=== PATIENT | male | born 1990 | race Caucasian/White ===

== ENCOUNTER 2018-06-30 17:46 | Emergency (ER) | payer MEDICAID, SELFPAY ==
[2018-06-03 10:16] VITALS: BMI 24.3
[2018-06-30 17:47] VITALS: BP 129/86; PULSE 93; RESP 15; TEMP 36.7; O2SAT 97; BMI 23.7
--- NOTE | 2018-06-30 18:23 | ED.VISSUMM ---
- ER Visit Summary Date of Service: 06/30/18 Chief Complaint: [] Irritation to the penile shaft after intercourse yesterday History of Present Illness: The patient is a 28 M [] no past history no penile discharge or drainage dysuria no trauma other than reporting he had normal intercourse with his yesterday suffered no direct trauma other than the normal events related to intercourse, indicates he feels that his irritation to the right lateral side of his penile shaft he has no history of STD or other complaints Physical Examination: [] The patient's exam penile shaft exam is unremarkable he has no lesions no swelling no warmth no drainage, the area he points to appears to show normal skin folds no signs of infection or trauma or lesion testicles inguinal area abdomen soft and the rest of his medical exam is also unremarkable Test Results: [] Emergency Department Course and Treatment: [] Explained to the patient likely has local irritation he should follow-up with his doctor he is given a referral to Dr. Porter urology antibiotic ointment to the area and return for change in symptoms Treatment Plan: [] Disposition: [] Home stable Impression: [] Irritation to the penile shaft This note was generated with [employer] dictation software. It may contain incorrect words, spelling, and punctuation that were not noted in review of the chart prior to signing ED Disposition - Plan for ED Patient: Referrals: NOT,DEFINED [Primary Care Provider] -
--- NOTE | 2018-06-30 18:24 | ED.DEP ---
ED Disposition - Plan for ED Patient: Instructions: ED Dermatitis Nonspecific Ch Referrals: NOT,DEFINED [Primary Care Provider] - Rod Aviles MD [STAFF PHYSICIAN] -
== END 2018-06-30 18:42 | disposition home or self-care (01) ==
LOC: ED 18:35
PROVIDERS: Emergency Provider Emergency Medicine
DX: N48.89 Other specified disorders of penis (principal)
CPT/HCPCS: 99282

== ENCOUNTER 2018-09-22 15:24 | Emergency (ER) | payer MEDICAID, SELFPAY ==
[2018-09-22 15:26] VITALS: BP 133/101; PULSE 88; RESP 17; TEMP 36.7; O2SAT 98; BMI 24.3
--- NOTE | 2018-09-22 15:28 | RAD_ITS ---
STUDY: X-RAY - RIGHT HAND REASON FOR EXAM: Male, 28 years old. Third through fifth metacarpal pain following injury. TECHNIQUE: 3 view(s) of the hand. COMPARISON: None. FINDINGS: Normal radiocarpal articulation. Normal distal radioulnar joint. Normal visualized carpal bones. Normal carpal articulations Normal carpometacarpal articulation of the thumb. Normal second through fifth carpometacarpal joints. Nondisplaced boxer type fracture along the distal aspect of the fifth metacarpal with mild dorsal angulation. Normal metacarpophalangeal joint of the thumb. Normal interphalangeal joint of the thumb. Normal proximal and distal phalanges of the thumb. Normal metacarpophalangeal joints of the second through fifth fingers. Normal proximal and distal interphalangeal joints of the second through fifth fingers. Normal phalanges of the second through fifth fingers. Soft tissue swelling. RAD/Hand Min 3 Views IMPRESSION: Boxer type fracture involving the distal portion of the fifth metacarpal with mild dorsal angulation and soft tissue swelling. Electronically Signed: Chan Chavez, at 15:50 EDT , Service support ,
--- NOTE | 2018-09-22 16:07 | ED.VISSUMM ---
- ER Visit Summary Date of Service: 09/22/18 Chief Complaint: Hand injury History of Present Illness: The patient is a 28 M who struck a wall today. He notes injury to the right hand. He is concerned is broken. He is right-hand dominant. He is seen Dr. Myles for orthopedics before. Physical Examination: Afebrile vital signs stable Gen: Well-nourished well-developed Head: Normocephalic atraumatic Eyes: Perrl EOMI ENT: TMs clear no rhinorrhea moist mucous membranes Neck: Supple no lymphadenopathy no JVD nontender CVS: Regular rate rhythm no murmurs normal S1-S2 Respiratory: No distress clear to auscultation bilaterally chest nontender Abdomen: Soft nontender nondistended normal bowel sounds no masses Back: Nontender Extremity: There is tenderness and swelling at the MCP joints of the right hand. Neurovascular intact Skin: Normal color no rash Neuro: alert orientated ?3 CN II-XII intact normal strength sensation Psych: Normal affect normal mood Test Results: X-rays revealed a boxer's fracture with displacement Emergency Department Course and Treatment: Patient was placed in a ulnar gutter splint. Neurovascular intact pre-and post application. He will follow-up with orthopedics Impression: 1. Right fifth metacarpal fracture 2. Splint by physician This note was generated with [employer] dictation software. It may contain incorrect words, spelling, and punctuation that were not noted in review of the chart prior to signing ED Disposition - Plan for ED Patient: Disposition: Home or Assisted Living Instructions: ED Fx Boxer Prescriptions: Hydrocodone Bitart/Apap 5-325 [[place] 5MG-325MG] 1 tab PO Q6H PRN PRN 3 Days #12 tab PRN Reason: Pain Referrals: Claudio Myles MD [STAFF PHYSICIAN] - (call to arrange follow up)
--- NOTE | 2018-09-22 16:10 | ED.DCSUM_ITS ---
- ER Visit Summary Date of Service: 09/22/18 Chief Complaint: Hand injury History of Present Illness: The patient is a 28 M who struck a wall today. He notes injury to the right hand. He is concerned is broken. He is right-hand dominant. He is seen Dr. Myles for orthopedics before. Physical Examination: Afebrile vital signs stable Gen: Well-nourished well-developed Head: Normocephalic atraumatic Eyes: Perrl EOMI ENT: TMs clear no rhinorrhea moist mucous membranes Neck: Supple no lymphadenopathy no JVD nontender CVS: Regular rate rhythm no murmurs normal S1-S2 Respiratory: No distress clear to auscultation bilaterally chest nontender Abdomen: Soft nontender nondistended normal bowel sounds no masses Back: Nontender Extremity: There is tenderness and swelling at the MCP joints of the right hand. Neurovascular intact Skin: Normal color no rash Neuro: alert orientated ?3 CN II-XII intact normal strength sensation Psych: Normal affect normal mood Test Results: X-rays revealed a boxer's fracture with displacement Emergency Department Course and Treatment: Patient was placed in a ulnar gutter splint. Neurovascular intact pre-and post application. He will follow-up with orthopedics Impression: 1. Right fifth metacarpal fracture 2. Splint by physician This note was generated with [employer] dictation software. It may contain incorrect words, spelling, and punctuation that were not noted in review of the chart prior to signing ED Disposition - Plan for ED Patient: Disposition: Home or Assisted Living Instructions: ED Fx Boxer Prescriptions: Hydrocodone Bitart/Apap 5-325 [[facility] 5MG-325MG] 1 tab PO Q6H PRN PRN 3 Days #12 tab PRN Reason: Pain Referrals: Claudio Myles MD [STAFF PHYSICIAN] - (call to arrange follow up)
--- NOTE | 2018-09-22 16:22 | ED.RN ---
DISCHARGE INSTRUCTIONS TO AND REVIEWED AND REVIEWED WITH PATIENT, PATIENT DENIES QUESTIONS OR CONCERNS AND VOICES UNDERSTANDING OF DISCHARGE INSTRUCTIONS. PT AMBULATES OUT OF ROOM WITHOUT DIFFICULTY.
== END 2018-09-22 16:24 | disposition home or self-care (01) ==
LOC: ED 16:18
PROVIDERS: Emergency Provider Emergency Medicine; Family Provider Family Medicine; PCP Family Medicine
DX: S62.339A Displaced fracture of neck of unspecified metacarpal bone, initial encounter for closed fracture (principal); Z72.0 Tobacco use; X58.XXXA Exposure to other specified factors, initial encounter; Y93.9 Activity, unspecified; Y92.89 Other specified places as the place of occurrence of the external cause; Y99.8 Other external cause status
CPT/HCPCS: 29125; 73130; 99282

== ENCOUNTER 2023-02-28 14:06 | Emergency (ER) | payer OTHER, SELFPAY ==
[2023-02-28 14:07] VITALS: BP 123/94; PULSE 81; RESP 16; TEMP 36.4; O2SAT 100; BMI 23.0
--- NOTE | 2023-02-28 14:37 | CT_ITS ---
STUDY: CT ABDOMEN AND PELVIS WITH CONTRAST REASON FOR EXAM: Male, 33 years old. Abd pain -- RLQ RUQ. Diarrhea. RADIATION DOSAGE (If Supplied By Facility): CTDIvol = ( 9.46 ) mGy, DLP = ( 463.98 ) mGycm TECHNIQUE: Transaxial images were obtained from the dome of the diaphragm to the symphysis pubis without oral contrast. IV 100mL Isovue-300 was administered. Sagittal and coronal images were reconstructed. Individualized dose optimization techniques were used for this CT. COMPARISON: None. FINDINGS: The visualized lung bases are unremarkable. The visualized portions of the heart are within normal limits. 1 cm cyst in the inferior medial aspect of the right lobe of the liver. Normal gallbladder and extrahepatic biliary system. Borderline splenomegaly. Normal pancreas. Normal bilateral adrenal glands. Normal right kidney. Normal left kidney. Normal visualized stomach. Normal small intestine. Colitis. The appendix is visualized and appears normal. Normal abdominal aorta. Normal inferior vena cava. Normal retroperitoneum. Normal urinary bladder. Normal abdominal wall. Normal osseous structures. CT/Abdomen/Pelvis W IV Cont ONLY IMPRESSION: Ramos colitis. Electronically Signed: Chan Chavez MD at 15:20 EDT ,
--- NOTE | 2023-02-28 14:40 | EDS_ITS ---
HPI HPI - GI History of Present Illness Chief Complaint: Abd Pain Informant: patient Narrative Narrative: Presents by private vehicle abdominal pain starting this morning while at work. Reports started on the mid abdominal radiating to the right side. No nausea or vomiting. States had loose stools. No urinary symptoms. No fevers or chills. Denies any abdominal surgeries in the past. Denies any previous similar symptoms in the past. He states has not tried eating due to symptoms. He felt fine yesterday evening. Prior similar symptoms: No PFSH PFSH Medical History (Updated 02/28/23 @ 16:[address] Declan Powell, DO) Bilateral headaches Environmental allergies History of amputation of finger Home Medications amoxicillin 875 mg-potassium clavulanate 125 mg tablet 875 mg (0.875 x 875-125 mg) PO Q12H #20 TABLETS 02/28/23 [Rx Last Taken Unknown] ondansetron 4 mg disintegrating tablet 4 mg PO Q8H PRN PRN Nausea #10 tabs 02/28/23 [Rx Last Taken Unknown] oxycodone-acetaminophen 5 mg-325 mg tablet (Percocet) 1 tab PO Q8H PRN pain 3 days #10 tabs 02/28/23 [Rx Last Taken Unknown] Allergy/AdvReac Type Severity Reaction Status Date / Time Seasonal Allergies: Uncoded Allergy COUGH Verified 02/28/23 14:09 Family History Other Cancer Hypertension Social History (Updated 06/08/18 @ 09:[address] Constanza Osborne, EMILIE) Smoking Status: Current some day smoker tobacco type: cigarettes and e- cigarettes alcohol intake: current alcohol intake frequency: holidays/special occasions only substance use type: does not use what type of physical activity do you participate in: none ROS ROS ED Constitutional Constitutional ED: Denies chills, fever(s) or sweats Eyes Eyes: Denies change in vision ENT ENT ED: Denies dysphagia or sore throat Cardiovascular Cardiovascular: Denies chest pain, leg edema, palpitations or racing heartbeat Respiratory/Chest Respiratory/Chest: Denies cough, dyspnea or dyspnea on exertion Gastrointestinal Gastrointestinal: Reports abdominal pain; Denies diarrhea, nausea or vomiting Genitourinary Genitourinary ED: Denies dysuria, hematuria or urinary frequency Musculoskeletal Musculoskeletal: Denies back pain, extremity pain or neck pain Integumentary Denies rash or wounds Neurologic Neurologic: Denies headache(s), paresthesias or weakness EXAM Physical Exam Const Vital Signs: 02/28/23 14:07 02/28/23 16:31 Temperature 97.6 F L Temperature Source Temporal Pulse Rate 81 79 Respiratory Rate 16 12 Blood Pressure 123/94 H 112/65 Blood Pressure Mean 103 80 Pulse Ox 100 99 Oxygen Delivery Method Room Air Positive well nourished and well developed General Appearance ED: well developed and NAD HEENT Reports moist mucous membranes normocephalic and atraumatic Eyes PERRL, EOMs intact bilaterally and conjunctivae normal General Eye ED: Yes normal appearance of both eyes Neck no lymphadenopathy and supple General: Negative for tenderness Chest Wall Chest: Negative for tenderness Resp normal respiratory effort and normal air movement Effort and Inspection: symmetric chest movement; Negative for respiratory distress Cardio regular rate, regular rhythm and no murmurs Peripheral Pulses: pulses 2+ throughout GI normal to inspection, nondistended, normoactive bowel sounds GI Narrative: tender both right upper quadrant and right lower quadrant. Palpation: Negative for rebound tenderness present Back/Spine no CVA tenderness and no thoracic nor lumbar tenderness Extremity normal to inspection General Extremety ED: Negative for edema or tenderness General Extremity: Negative for edema Neuro oriented x3 and no sensory deficits noted Sensorium / Orientation: awake and alert Skin no rashes or lesions noted and no wounds MDM MDM MDM Narrative Medical decision making narrative: Interventions / MDM: Differential diagnosis: Colitis Diagnosis considered but do not suspect: Cholecystitis, appendicitis however negative image findings. My EKG interpretation: N/A Imaging independently reviewed and interpreted by myself: CT abdomen pelvis IV contrast: Normal appendix, normal gallbladder, pancolitis also read by radiology External documents reviewed: N/A Test considered but not ordered:N/A ED course: Patient tender both right upper quadrant and right lower quadrant. Nondistended abdomen. IV established abdominal labs morphine Zofran will be ordered. Fluids started. Will order CT scan for further evaluation. Abdominal labs are all normal. Pain was well controlled reevaluation. CT scan with pancolitis. He had slight loose stools today. Abdominal reevaluation was soft. He denies any family history of ulcerative colitis or Crohn's disease. D iscussed with him will cover for infectious colitis with Augmentin. Additional short prescription for pain control. He is given follow-up with GI as an outpatient for further work-up. Return precaution discussed. All questions were answered. Re-evaluation: stable Disposition discussed with patient/family/significant other: Patient different other Case discussed with consulting clinician: N/A This note was generated with [employer] dictation software. It may contain incorrect words, spelling, and punctuation that were not noted in checking the note before signing. Lab Data Attestation: I reviewed the patient's lab results. Labs: Laboratory Results - last 24 hr 02/28/23 02/28/23 14:30 14:33 WBC 9.6 RBC 4.83 Hgb 14.2 Hct 42.7 MCV 88.4 MCH 29.4 MCHC 33.3 RDW Std Deviation 42.1 RDW Coeff of Derrick 13.0 Plt Count 138 L MPV 11.7 Immature Gran % (Auto) 0.300 Neut % (Auto) 86.8 H Lymph % (Auto) 5.1 L Tama % (Auto) 7.7 Eos % (Auto) 0.0 Baso % (Auto) 0.1 Absolute Neuts (auto) 8.3 H Absolute Lymphs (auto) 0.49 L Nucleated RBC % 0 Differential Comment SEE COMMENT Platelet Estimate SLT DEC RBC Morphology N CHROM Anisocytosis RARE Sodium 137 Potassium 3.6 Chloride 105 Carbon Dioxide 25.0 Anion Gap 7 BUN 10 Creatinine 0.80 Estim Creat Clear Calc 123.94 Est GFR (MDRD) Af Amer 145 Est GFR (MDRD) Non-Af 120 BUN/Creatinine Ratio 12.6 Glucose 100 Calcium 9.2 Total Bilirubin 0.60 Direct Bilirubin 0.14 AST 13 L ALT 21 Alkaline Phosphatase 72 Total Protein 7.5 Albumin 3.9 Globulin 3.6 Lipase 29 Urine Color Yellow Urine Clarity Sl. Cloudy Urine pH 5.0 Ur Specific [place] 1.020 Urine Protein 15 H Urine Glucose (UA) Normal Urine Ketones 50 H Urine Occult Blood Negative Urine Nitrite Negative Urine Bilirubin Negative Urine Urobilinogen Normal Ur Leukocyte Esterase Negative Urine RBC 0 SEEN Urine WBC 0 SEEN Ur Squamous Epith Cells 0 SEEN Urine Bacteria 0 SEEN Urine Mucus 2+ Radiography Diagnostic Testing: Clinical Impression(s) from Imaging Studies Abdomen/Pelvis CT 02/28/23 14:37 IMPRESSION: Ramos colitis. Electronically Signed: Chan Chavez MD at 15:20 EDT , Discharge Plan Triage Chief Complaint: Abd Pain ED Provider: Declan Powell Dx/Rx/DC Orders Clinical Impression: Colitis, Abdominal pain Instructions: Abdominal Pain, ED Understanding Colitis Prescriptions: New oxycodone-acetaminophen [Percocet] 5-325 mg tablet 1 tab PO Q8H PRN (Reason: pain) 3 Days Qty: 10 0RF ondansetron [ondansetron] 4 mg tablet,disintegrating 4 mg PO Q8H PRN PRN (Reason: Nausea) Qty: 10 0RF amoxicillin-pot clavulanate [amoxicillin-pot clavulanate] 875-125 mg tablet 875 mg PO Q12H Qty: 20 0RF Stand Alone Forms: ED Work / School Excuse Primary Care Provider: Giovanni Moser Referrals: Giovanni Moser MD [Primary Care Provider] - Rufino Beach DO [Med Staff - Active Staff] - 1-2 Weeks Activity Restrictions/Additional Instructions: CT scan with pancolitis. Your labs are stable. Take antibiotic as prescribed pain medicines as needed. Discussed with family if there is any family history of ulcerative colitis or Crohn's disease. You will need to follow-up with gastroenterology for further outpatient work-up. No driving while taking strong pain medications. May use Tylenol or acetaminophen by itself every 6 hours. Return if any worsening symptoms. Disposition Disposition: Home, Self Care Discharge Date/Time: 02/28/23 16:32
[2023-02-28 14:54] LABS: Bacteria 0 SEEN /hpf (None Seen); Red Blood Cells-Urine 0 SEEN /hpf (0-5); Squamous Epithelial Cells - UA 0 SEEN /hpf (0-5); White Blood Cells 0 SEEN /hpf (0-5)
[2023-02-28] MEDS: 0.9% Normal Saline (1000mL) 1,000 ML 1000 ML IV (14:55)
[2023-02-28] MEDS: Ondansetron 4 MG/2 ML Vial IV (14:56)
[2023-02-28 15:03] LABS: Absolute Lymphocyte Count 0.49 X10^3/uL (0.83-4.51); Absolute Neutrophil Count 8.3 X10^3/uL (2.0-7.7); Basophil# 0.01 X10^3/uL; Basophil% 0.1 % (0-1); Hematocrit 42.7 % (40-54); Hemoglobin 14.2 g/dL (13.0-16.5); Lymphocyte # 0.49 X10^3/ul (0.83-4.51); Lymphocyte % 5.1 % (19-41); Mean Corp Hgb Conc 33.3 g/dL (32-36); Mean Corpuscular Hgb 29.4 pg (27.0-32.0); Mean Corpuscular Volume 88.4 fL (80-94); Mean Platelet Vol. 11.7 fl (6.2-12.0); Monocyte# 0.74 X10^3/uL; Monocyte% 7.7 % (0-10); NRBC Flagged by Analyzer 0 % (0-5); Neutrophil # 8.33 X10^3/uL (2.7-7.7); Neutrophil % 86.8 % (47-70); POSITIVE DIFFERENTIAL YES; Platelet Count 138 K/mm3 (150-450); RBC Distribution Width SD 42.1 fl (35.1-43.9); Red Blood Count 4.83 M/mm3 (4.6-6.2); White Blood Count 9.6 K/mm3 (4.4-11.0)
[2023-02-28 15:04] LABS: Differential Indicated SCAN CRITERIA MET
[2023-02-28] MEDS: Morphine 4 MG/ML Syringe IV (15:14)
[2023-02-28 15:23] LABS: Color, Urine Yellow (Yellow); Glucose, Dipstick Normal (Normal); Ketone-Dipstick 50 mg/dl (Negative); Leukocyte Esterase-Dipstick Negative /ul (Negative); Nitrite-Dipstick Negative (Negative); Occult Blood-Urine Negative /ul (Negative); Protein-Dipstick 15 mg/dl (Negative); Urine Bilirubin Dipstick Negative (Negative); Urine Clarity Sl. Cloudy (Clear); Urine Urobilinogen Normal (Normal)
[2023-02-28 15:40] LABS: AST(SGOT) 13 U/L (15-37); Alanine Aminotransfer ALT/SGPT 21 U/L (16-61); Albumin, Serum 3.9 g/dL (3.2-5.0); Alkaline Phosphatase 72 U/L (45-117); Anion Gap 7 (5-15); BUN 10 mg/dL (7-18); BUN/Creat Ratio 12.6 RATIO (10-20); Bilirubin, Direct 0.14 mg/dL (0.00-0.30); Calcium,Total 9.2 mg/dL (8.5-10.1); Chloride 105 mmol/L (98-107); EST Glomerular Filtration Rate 120 mL/min (>60); Est Glom Filt Rate - Afr Amer 145 mL/min (>60); Estimated Creatinine Clearance 123.94 ml/min; Globulin 3.6 g/dL (2.2-4.2); Glucose 100 mg/dL (74-106); Lipase 29 U/L (13-75); Potassium 3.6 mmol/L (3.5-5.1); Protein, Total 7.5 g/dL (6.4-8.2); Sodium Level 137 mmol/L (136-145)
[2023-02-28 15:43] LABS: Anisocytosis RARE; Platelet Estimate SLT DEC (ADEQ); Red Cell Morphology N CHROM NORMAL (NORM C&C)
[2023-02-28] MEDS: Amox/Clavulanate 875 MG Tablet PO (16:29)
[2023-02-28 16:31] VITALS: BP 112/65; PULSE 79; RESP 12; O2SAT 99
[2023-02-28 17:16] LABS: Mucous, Urine 2+ /hpf (<or=2+)
== END 2023-02-28 16:32 | disposition home or self-care (01) ==
PROVIDERS: Emergency Provider Emergency Medicine; PCP Family Medicine; Visit Provider Emergency Medicine
DX: K52.9 Noninfective gastroenteritis and colitis, unspecified (principal); F17.210 Nicotine dependence, cigarettes, uncomplicated
CPT/HCPCS: 74177; 80048; 80076; 81001; 83690; 85025; 96361; 96374; 96375; 99283; J7030; Q9967; A4216; J2405